=== PATIENT | male | born 1990 | race Caucasian/White ===

== ENCOUNTER 2018-04-23 16:25 | Emergency (ER) | payer SELFPAY ==
[~2018-04-23] VITALS: Ht 195.6 cm; Wt 113.5 kg
[2018-04-23 16:31] VITALS: TEMP 99.2
[2018-04-23 17:18] LABS: BASO % 0.4 % (0.0-2.0); EOS # 0.3 (0.0-0.7); EOS % 3.2 % (0-4.0); GRAN # 5.4 (1.4-6.5); GRAN % 65.8 % (42.2-75.2); HEMATOCRIT 46.6 % (42.0-52.0); HEMOGLOBIN 16.1 g/dl (13.5-18.0); LYMPH # 1.9 (1.2-3.4); LYMPH % 23.4 % (20.0-51.0); MEAN CELL VOLUME 93 fl (80.0-100.0); MEAN CORPUSCULAR HEMOGLOBIN 32 pg (27.0-31.0); MEAN CORPUSCULAR HGB CONC 35 g/dl (33.0-37.0); MEAN PLATELET VOLUME 9.7 fl (7.4-10.4); MONO # 0.6 (0.1-0.6); PLATELET COUNT 378 K/mm3 (130-400); RED BLOOD COUNT 5.04 M/mm3 (4.20-5.60); REDCELL DISTRIBUTION WIDTH-CV 13.1 % (11.5-14.5)
[2018-04-23 17:29] LABS: ALANINE AMINOTRANSFERASE 53 U/L (21-72); ALBUMIN 4.4 gm/dL (3.5-5.0); ALKALINE PHOSPHATASE 46 U/L (50-136); ANION GAP 6 mmol/L (7-16); AST,SGOT 35 U/L (15-37); BILIRUBIN,TOTAL 0.3 mg/dL (0.0-1.0); BLOOD UREA NITROGEN 13 mg/dL (9-20); CALCIUM 9.4 mg/dL (8.4-10.2); CARBON DIOXIDE 29 mmol/L (22-30); CHLORIDE 107 mmol/L (98-107); CREATININE, serum 1.17 mg/dL (0.66-1.25); GLUCOSE 88 mg/dL (74-106); POTASSIUM 4.2 mmol/L (3.4-5.0); SODIUM 142 mmol/L (137-145); TOTAL PROTEIN 7.6 gm/dL (6.4-8.2)
[2018-04-23 17:46] LABS: TROPONIN-I < 0.012 ng/mL (0.000-0.034)
[2018-04-23 18:29] VITALS: BP 129/81; PULSE 69
== END 2018-04-23 18:29 | disposition home or self-care (01) ==
LOC: COL.ER 16:25
PROVIDERS: Emergency Medicine
DX: R07.89 Other chest pain (principal)

== ENCOUNTER 2020-01-06 10:04 | Emergency (ER) | payer OTHER ==
[~2020-01-06] VITALS: Ht 193 cm; Wt 115.9 kg
[2020-01-06 10:14] VITALS: BP 134/95; TEMP 97.3
[2020-01-06] MEDS ORDERED: GENTAMICIN EYE D5 ML OD (10:59)
[2020-01-06 11:11] VITALS: PULSE 74
== END 2020-01-06 11:11 | disposition home or self-care (01) ==
LOC: COL.ER 10:04
DX: B99.9 Unspecified infectious disease (principal); H10.89 Other conjunctivitis

== ENCOUNTER → 2021-04-07 | Outpatient (CLI) | payer SELFPAY ==
[~2021-04-07] MED LIST: GENTAMICIN EYE D5 ML OD
== END ==
LOC: MHCPAIN 08:05
DX: M54.16 Radiculopathy, lumbar region (principal); M47.896 Other spondylosis, lumbar region; M53.3 Sacrococcygeal disorders, not elsewhere classified; G89.29 Other chronic pain
CPT/HCPCS: G0463